=== PATIENT | female | born 2000 | race Two or more races ===

== ENCOUNTER 2022-04-16 12:00 | Emergency (ER) | payer BC, OTHER ==
[~2022-04-16] VITALS: Ht 157.5 cm; Wt 104.5 kg
[2022-04-16 15:00] VITALS: BP 118/76
[2022-04-16] MEDS ORDERED: KETOROLAC TROMETH 60MG/2ML VIAL IM ONE (15:15)
== END 2022-04-16 15:42 | disposition home or self-care (01) ==
LOC: ER 12:02
DX: S96.912A Strain of unspecified muscle and tendon at ankle and foot level, left foot, initial encounter (principal); W19.XXXA Unspecified fall, initial encounter; Y93.89 Activity, other specified; Y92.89 Other specified places as the place of occurrence of the external cause; Y99.8 Other external cause status
CPT/HCPCS: 73630; 96372; 99283; J1885